=== PATIENT | female | born 1975 | race Hispanic/Latino ===

== ENCOUNTER 2018-11-09 13:06 | Emergency (ER) | payer OTHER ==
[~2018-11-09] VITALS: Ht 167.6 cm; Wt 125.6 kg
--- OUTSIDE RECORDS SUMMARY | 2018-11-09 13:09 | XMS REPORT | Clinical Summary ---
Author Author [facility] [employer] Address Unknown Phone Unavailable Care Team Providers Care Retail Wireless Sales Representative Name Role Phone Asked, No Pcp PCP Unavailable Allergies Comments Active Allergy Reactions Severity Noted Date Naproxen 11/02/2018 Medications End Date Status Medication Sig Dispensed Refills Start Date Active naproxen (NAPROSYN) 500 Take 500 mg 0 MG tablet by mouth 2 (two) times a day as needed for mild pain. 12/02/2018 Active naproxen (NAPROSYN) 500 Take 1 tablet 60 tablet 0 MG tablet (500 mg 9 total) by mouth 2 (two) times a day with meals for 30 days. 11/12/2018 Active acetaminophen-codeine Take 1-2 10 tablet 0 (TYLENOL WITH CODEINE #3) tablets by 9 300-30 mg per tablet mouth every 6 (six) hours as needed for moderate pain for up to 10 days. Active Problems Problem Noted Date Acute blood loss anemia 06/16/2017 DUB (dysfunctional uterine bleeding) 06/16/2017 Menometrorrhagia 06/16/2017 Iron deficiency anemia due to chronic blood loss from heavy uterine 06/16/2017 bleeding Intramural, submucous, and subserous leiomyoma of uterus 06/16/2017 Enlarged uterus 06/16/2017 Encounters Care Team Description Date Type Specialty Marge Couch DO DUB (dysfunctional uterine bleeding) (Primary Dx) 11/02/2018 Emergency Emergency Medicine 11/02/2018 Travel Darryl Bell MD Chest pain, unspecified type (Primary Dx) 04/22/2018 Emergency Emergency Medicine - 04/23/2018 04/22/2018 Travel after 11/08/2017 Social History Date Tobacco Use Types Packs/Day Years Used Never Smoker Smokeless Tobacco: Never Used Alcohol Use Drinks/Week oz/Week Comments No Sex Assigned at Date Recorded Not on file Industry Job Start Date Occupation Not on file Not on file Not on file Travel End Travel History Travel Start No recent travel history available. Last Filed Vital Signs Time Taken Vital Sign Reading 11/02/2018 2:05 PM CDT Blood Pressure 155/79 11/02/2018 2:05 PM CDT Pulse 105 11/02/2018 2:05 PM CDT Temperature 36.6 C (97.9 F) 11/02/2018 2:05 PM CDT Respiratory Rate 16 11/02/2018 2:05 PM CDT Oxygen Saturation 99% - Inhaled Oxygen - Concentration 04/22/2018 4:53 PM MOTOR PATROL OPERATOR Weight 127 kg (280 lb) 11/02/2018 2:43 PM CDT Height 167.6 cm (5' 6") 04/22/2018 4:53 PM MOTOR PATROL OPERATOR Body Mass Index 45.19 Plan of Treatment Health Maintenance Due Date Last Done Comments INFLUENZA VACCINE 11/03/2018 Procedures Comments Procedure Name Priority Date/Time Associated Diagnosis HCG QUALITATIVE, SERUM STAT 11/02/2018 SCREEN 5:33 PM CDT ESTIMATED GFR STAT 11/02/2018 3:17 PM CDT BASIC METABOLIC PANEL STAT 11/02/2018 3:17 PM CDT TYPE AND SCREEN Routine 11/02/2018 3:17 PM CDT HC COMPLETE BLD COUNT STAT 11/02/2018 W/AUTO DIFF 3:15 PM CDT TROPONIN Timed 04/22/2018 10:35 PM MOTOR PATROL OPERATOR ECG ED PRELIMINARY Routine 04/22/2018 INTERPRETATION 7:17 PM MOTOR PATROL OPERATOR TYPE AND SCREEN Routine 04/22/2018 7:05 PM MOTOR PATROL OPERATOR D-DIMER STAT 04/22/2018 7:05 PM MOTOR PATROL OPERATOR ESTIMATED GFR STAT 04/22/2018 7:05 PM MOTOR PATROL OPERATOR B NATRIURETIC PEPTIDE STAT 04/22/2018 7:05 PM MOTOR PATROL OPERATOR TROPONIN STAT 04/22/2018 7:05 PM MOTOR PATROL OPERATOR CREATINE KINASE, TOTAL STAT 04/22/2018 (CPK) 7:05 PM MOTOR PATROL OPERATOR COMPREHENSIVE METABOLIC STAT 04/22/2018 PANEL 7:05 PM MOTOR PATROL OPERATOR HC COMPLETE BLD COUNT STAT 04/22/2018 W/AUTO DIFF 7:05 PM MOTOR PATROL OPERATOR XR CHEST 1 VW PORTABLE STAT 04/22/2018 5:31 PM MOTOR PATROL OPERATOR ECG 12-LEAD STAT 04/22/2018 4:48 PM MOTOR PATROL OPERATOR TRANSFUSE RED BLOOD CELLS STAT 12/08/2017 5:51 PM CDT TRANSFUSE RED BLOOD CELLS STAT 12/08/2017 5:51 PM CDT after 11/08/2017 Results * hCG qualitative, serum screen (11/02/2018 5:33 PM CDT) Pathologist [facility] [place] hCG Negative [facility] qualitative, Comment: [facility] serum The manufacturers stated [place] sensitivity of HcG test for HOSPITAL serum is >/=10 mIU/ml and urine is >/=20mIU/ml. Specimen Blood Performing Organization Address City/[facility]/Zipcode Phone Number [facility] DEPARTMENT OF [address] [place] [address] PATHOLOGY AND GENOMIC MEDICINE [facility] [place] [address] [address] * Estimated GFR (11/02/2018 3:17 PM CDT) Only the most recent of 2 results within the time period is included. [facility] Estimated GFR >=90 mL/min/1.73 m2 [facility] Comment: [facility] CatergoryUnitsSelect Specialty Hospitale [facility] G1 >=90 Normal or high G2 60-89Mildly decreased [id number] Mildly to moderately decreased [id number] Moderately to severely decreased G4 15-29Severely decreased G5 <15Kidney failure The eGFR was calculated using the Chronic Kidney Disease Epidemiology Collaboration (CKD-EPI) equation. Interpretation is based on recommendations of the National Kidney Foundation-Kidney Disease Outcomes Quality Initiative (NKF-KDOQI) published in 2014. Specimen Plasma specimen Performing Organization Address City/State/Zipcode Phone Number [facility] DEPARTMENT OF [address] [place] [address] PATHOLOGY AND GENOMIC MEDICINE [facility] [address] [place] [address] HOSPITAL * Type and screen (11/02/2018 3:17 PM CDT) Only the most recent of 2 results within the time period is included. ABO grouping O [facility] Rh type POS [facility] Antibody screen NEG [facility] (gel) [facility] Specimen Blood Performing Organization Address City/[facility] Phone Number [facility] DEPARTMENT OF [address] [place] [phone] PATHOLOGY AND GENOMIC MEDICINE [address] * Basic metabolic panel (11/02/2018 3:17 PM CDT) Pathologist [facility] [place] Sodium 140 135 - 150 mEq/L [facility] Potassium 4.0 3.5 - 5.0 mEq/L [facility] Chloride 104 98 - 112 mEq/L [facility] CO2 26 24 - 31 mmol/L [facility] Anion gap 10@ANIO 7 - 15 mEq/L [facility] BUN 14 7 - 18 mg/dL [facility] Creatinine 0.80 0.50 - 0.90 mg/dL [facility] Glucose 109 (H) 65 - 100 mg/dL [facility] Calcium 9.0 8.3 - 10.2 mg/dL [facility] Specimen Plasma specimen Performing Organization Address City/State/Zipcode Phone Number [facility] DEPARTMENT [address] [place] [phone] PATHOLOGY AND GENOMIC MEDICINE [address] * CBC with platelet and differential (11/02/2018 3:15 PM CDT) Only the most recent of 2 results within the time period is included. WBC 9.2 4.2 - 11.0 k/uL [facility] RBC 4.31 4.04 - 5.86 m/uL [facility] HGB 10.5 (L) 11.5 - 15.3 g/dL [facility] HCT 36.0 34.0 - 45.0 % [facility] MCV 83.5 80.0 - 98.0 fL [facility] MCH 24.4 (L) 27.0 - 34.0 pg [facility] MCHC 29.2 (L) 31.5 - 36.5 g/dL [facility] RDW - SD 50.9 37.0 - 51.0 fL [facility] MPV 11.5 (H) 7.4 - 10.4 fL [facility] Platelet count 286 150 - 400 k/uL [facility] Nucleated RBC 0.00 /100 WBC [facility] Neutrophils 73.8 (H) 36.0 - 66.0 % [facility] Lymphocytes 16.2 (L) 24.0 - 44.0 % [facility] Monocytes 7.5 (H) 0.0 - 6.0 % [facility] Eosinophils 1.7 0.0 - 6.0 % [facility] Basophils 0.5 0.0 - 1.2 % [facility] Immature 0.3 0.0 - 1.0 % [facility] granulocytes [facility] Specimen Blood Performing Organization Address City/State/Zipcode Phone Number [facility] DEPARTMENT OF [address] [place] [phone] PATHOLOGY AND GENOMIC MEDICINE [facility] [address] [place] [address] HOSPITAL * Troponin (04/22/2018 10:35 PM MOTOR PATROL OPERATOR) Only the most recent of 2 results within the time period is included. Troponin <0.30 0.00 - 0.30 ng/mL [facility] Comment: [facility] RYAN 0.11 - 1.49 [facility] indicate increased risk of acute coronary syndrome. >=1.5 ng/ml Consistent with acute myocardial infarction. The diagnostic value of a single normal or non-diagnostic result is questionable.Serial samples at 2-6 hour intervals are required to rule out acute myocardial injury. Specimen Plasma specimen Performing Organization Address City/State/Zipcode Phone Number [facility] DEPARTMENT OF [address] [place] [address] PATHOLOGY AND GENOMIC MEDICINE [facility] [address] * ECG ED Preliminary Interpretation - Not an Order (04/22/2018 7:17 PM MOTOR PATROL OPERATOR) Narrative Performed At Darryl Bell MD 04/24/2018 12:36 PM ECG ED Preliminary Interpretation - Not an Order Performed by: Darryl Bell MD Authorized by: Darryl Bell MD ECG reviewed by ED Physician in the absence of a email marketing manager: yes Interpretation: Interpretation: normal Rate: ECG rate:80 bpm ECG rate assessment: normal Rhythm: Rhythm: sinus rhythm Ectopy: Ectopy: none QRS: QRS axis:Normal QRS intervals:Normal Conduction: Conduction: normal ST segments: ST segments:Normal T waves: T waves: normal * D-dimer (04/22/2018 7:05 PM MOTOR PATROL OPERATOR) Pathologist [facility] [place] D-dimer 0.29 0.00 - 0.40 ug/mL [facility] Comment: U [facility] SAN Units are ug/ml Fibrinogen [facility]. [facility] When combined with low clinical probability, D-dimer results of less than 0.5 ug/ml FEU have a good negativepredictive value in excluding PE or DVT. For D-dimer results greater than 0.5ug/ml FEU further testing is indicated if PE or DVT is suspectedclinically. Elevated D-dimer results have been reported in DVT, PE, and DIC cases and may indicate the presence of a clot. D-dimer results may be elevated due to old age, , inflammatory diseases, trauma, post-operative states, sepsis, and malignancies. Specimen Blood Performing Organization Address City/State/Zipcode Phone Number [facility] OF [address] [place] [address] PATHOLOGY AND GENOMIC MEDICINE [facility] [address] * B natriuretic peptide (04/22/2018 7:05 PM MOTOR PATROL OPERATOR) Pathologist [facility] [place] BNP 5 0 - 100 pg/mL [facility] Specimen Blood Performing Organization Address City/[facility]/Zipcode Phone Number [place] [phone] [place] [address] PATHOLOGY AND GENOMIC MEDICINE [address] * Creatine kinase, total (CPK) (04/22/2018 7:05 PM MOTOR PATROL OPERATOR) [facility] Creatine kinase 72 26 - 192 U/L [facility] Specimen Plasma specimen Performing Organization Address City/[facility]/[place] [address] PATHOLOGY AND GENOMIC MEDICINE [address] * Comprehensive metabolic panel (04/22/2018 7:05 PM MOTOR PATROL OPERATOR) [facility] Sodium 137 135 - 150 mEq/L [facility] Potassium 3.9 3.5 - 5.0 mEq/L [facility] Chloride 99 98 - 112 mEq/L [facility] CO2 23 (L) 24 - 31 mmol/L [facility] Anion gap 15@ANIO 7 - 15 mEq/L [facility] BUN 15 7 - 18 mg/dL [facility] Creatinine 0.70 0.50 - 0.90 mg/dL [facility] Glucose 86 65 - 100 mg/dL [facility] Calcium 9.6 8.3 - 10.2 mg/dL [facility] Protein 7.3 6.3 - 8.3 g/dL [facility] Albumin 3.7 3.5 - 5.0 g/dL [facility] A/G ratio 1.0 0.7 - 3.8 [facility] Alkaline 94 0 - 104 U/L [facility] phosphatase [facility] AST 26 10 - 35 U/L [facility] ALT 34 5 - 50 U/L [facility] Total bilirubin 0.3 0.2 - 1.2 mg/dL [facility] Specimen Plasma specimen Performing Organization Address City/State/Zipcode Phone Number [facility] DEPARTMENT OF [address] [place] [address] PATHOLOGY AND GENOMIC MEDICINE [facility] [address] [place] [address] [facility] * XR Chest 1 Vw Portable (04/22/2018 5:31 PM MOTOR PATROL OPERATOR) Specimen Narrative Performed At [facility] EXAMINATION:XR CHEST 1 VW PORTABLE CLINICAL HISTORY:chest pain XR CHEST 1 VW PORTABLEimages are submitted COMPARISON:March 2016 FINDINGS: The cardiac silhouette is normal in size. The pulmonary vasculature is within normal limits. The lung zones have no focal area of consolidation. There is no pleural effusion or pneumothorax. IMPRESSION: 1. There is no acute cardiopulmonary disease. [facility]-[id number] Procedure Note Hm Interface, Radiology Results Incoming - 04/22/2018 5:45 PM MOTOR PATROL OPERATOR EXAMINATION: XR CHEST 1 VW PORTABLE CLINICAL HISTORY: chest pain XR CHEST 1 VW PORTABLE images are submitted COMPARISON: March 2016 FINDINGS: The cardiac silhouette is normal in size. The pulmonary vasculature is within normal limits. The lung zones have no focal area of consolidation. There is no pleural effusion or pneumothorax. IMPRESSION: 1. There is no acute cardiopulmonary disease. [facility]-[id number] Performing Organization Address [facility] Phone Number [facility] [address] [place] [address] * ECG 12 lead (04/22/2018 4:48 PM MOTOR PATROL OPERATOR) Ventricular 80 [facility] rate Atrial rate 80 [facility] LA interval 162 [facility] QRSD interval 90 [facility] QT interval 372 [facility] QTC interval 429 [facility] P axis 1 37 [facility] QRS axis 1 4 [facility] T wave axis 56 [facility] EKG impression Normal sinus rhythm-Cannot [facility] rule out Anterior infarct , age undetermined-Abnormal ECG-No previous ECGs available- Specimen Narrative Performed At Performing Organization Address City/[facility]/Zipcode Phone Number [facility] MUSE [address] [place] [address] * Transfuse RBC (12/08/2017 5:51 PM CDT) Only the most recent of 2 results within the time period is included. after 11/08/2017 Insurance Type Payer Benefit Subscriber ID Effective Phone Address Plan / Dates Group Exchange KEYES EXCHANGE KEYES xxxxxxxxxx [id number] [employer] resent E EXCHANGE Advance Directives Patient has advance care planning documents on file. For more information, rupert munoz contact: Sukhi Cevallos [address] [place] [address]
--- OUTSIDE RECORDS SUMMARY | 2018-11-09 13:09 | XMS REPORT ---
Author Author [facility] Address Unknown Phone Unavailable Care Team Providers Care Import Coordinator Name Role Phone Unavailable Unavailable Problems This patient has no known problems. Allergies, Adverse Reactions, Alerts This patient has no known allergies or adverse reactions. Medications This patient has no known medications. Encounters Start Date/Time End Date/Time Encounter Type Admission Type Attending [facility] Facility Care Department Encounter ID 2019-01-10 00:00:00 2019-01-10 00:00:00 Outpatient [facility] [id number] 2018-11-03 06:18:13 2018-11-03 06:18:13 Emergency [facility] [id number] 2018-11-02 20:11:20 2018-11-02 20:11:20 Emergency [facility] [id number]
--- OUTSIDE RECORDS SUMMARY | 2018-11-09 13:09 | XMS REPORT | Clinical Summary ---
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 Active acetaminophen (TYLENOL) Take 650 mg 0 325 mg tablet by mouth every 6 hours as needed for Pain. Active desogestrel-ethinyl Take 1 tablet 84 Each 1 estradiol (VELIVET) by mouth 4 0.1/.125/.15-25 mg-mcg daily. tabletIndications: Irregular menses, Endometriosis, Dysmenorrhea Active ibuprofen (MOTRIN) 800 mg Take 1 tablet 40 tablet 1 tabletIndications: by mouth 4 Irregular menses, every 8 hours Endometriosis, as needed for Dysmenorrhea Pain. Active acetaminophen-codeine Take 1 tablet 12 tablet 0 (TYLENOL/CODEINE #3) by mouth 9 300-30 mg per every 6 hours tabletIndications: as needed for Menorrhagia with up to 12 irregular cycle, Fibroids doses for Pain. Active medroxyPROGESTERone Take 2 60 tablet 0 (PROVERA) 10 mg tablets by 9 tabletIndications: mouth As Menorrhagia with directed Take irregular cycle, Fibroids 2 tablets by mouth 3 times daily for 1 week. Then take 1 tablet once daily.. Active Problems Problem Noted Date Vaginal bleeding 06/16/2016 Chest pain in adult 06/16/2016 SOB (shortness of breath) on exertion 06/16/2016 Polycystic disease, ovaries Endometriosis Encounters Care Team Description Date Type Specialty Kehinde Gerber MD Pandya, Michael, MD Weltge, Arlo F, MD Menorrhagia with irregular cycle (Primary Dx); Vaginal bleeding; Fibroids 11/02/2018 Emergency Emergency Medicine - 11/03/2018 11/02/2018 Travel after 11/08/2017 Family History Medical History Relation Name Comments Family Medical History Other Unknown Relation Name Status Comments Father Alive Mother Alive Other Sister Alive Sister Alive Social History Date Tobacco Use Types Packs/Day Years Used Former Smoker Smokeless Tobacco: Never Used Drinks/Week oz/Week Comments Alcohol Use No Sex Assigned at Date Recorded Not on file Industry Job Start Date Occupation Not on file Not on file Not on file Travel End Travel History Travel Start No recent travel history available. 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 She has Gladis Henson, ResidentIL 01/10/2019 Office Visit Gynecology Health Maintenance Due Date Last Done Comments Cervical Cancer Scrn (3 1998 Yrs) Breast Cancer Scrn 2017 (Yearly) IMM Influenza Seasonal 01/03/2019 Oct to June (>/=19 yrs) Procedures Comments Procedure Name Priority Date/Time Associated Diagnosis CBC STAT 11/03/2018 9:46 AM CDT CBC/DIFF STAT 11/03/2018 9:46 AM CDT U/S PELVIS NON-OB STAT 11/03/2018 Vaginal bleeding 7:33 AM CDT U/S TRANSVAGINAL STAT 11/03/2018 Vaginal bleeding 7:33 AM CDT CBC STAT 11/03/2018 12:25 AM CDT CBC/DIFF STAT 11/03/2018 12:25 AM CDT TYPE & SCREEN STAT 11/02/2018 9:37 PM CDT TYPE AND SCREEN STAT 11/02/2018 9:37 PM CDT BMP POC Routine 11/02/2018 8:59 PM CDT CBC STAT 11/02/2018 8:55 PM CDT CBC/DIFF STAT 11/02/2018 8:55 PM CDT after 11/08/2017 Results * CBC (11/03/2018 9:46 AM CDT) Only the most recent of 3 results within the time period is included. WBC 9.0 4.5 - 11.0 K/uL [facility] RBC 3.57 (L) 4.20 - 5.40 M/uL [facility] Hemoglobin 8.9 (L) 12.0 - 16.0 g/dL [facility] Hematocrit 30.3 (L) 37.0 - 47.0 % [facility] MCV 84.9 82.0 - 92.0 fL [facility] MCH 24.9 (L) 27.0 - 32.0 pg [facility] MCHC 29.4 (L) 32.0 - 36.0 g/dL [facility] RDW 52.0 (H) 36.4 - 46.3 fL [facility] Platelet 277 150 - 400 K/uL [facility] Mean Platelet 11.7 9.4 - 12.4 fL [facility] Volume Percent NRBC 0.0 % [facility] Neutrophil 70.7 (H) 34.0 - 70.0 % [facility] Lymphocyte 19.0 (L) 20.0 - 50.0 % [facility] Monocyte 7.8 5.0 - 12.0 % [facility] Eosinophil 1.6 0.7 - 5.0 % [facility] Basophil 0.6 0.1 - 1.2 % [facility] Pct Immat Gran 0.3 0.0 - 0.5 % [facility] Neutrophil, Abs 6.39 (H) 1.56 - 6.13 K/uL [facility] Lymphocyte, Abs 1.72 1.18 - 3.74 K/uL [facility] Monocyte, Abs 0.70 (H) 0.24 - 0.36 K/uL [facility] Eosinophil, Abs 0.14 0.04 - 0.36 K/uL [facility] Basophil, Abs 0.05 0.01 - 0.08 K/uL [facility] Absol Immat 0.03 0.00 - 0.03 K/uL [facility] Gran Absolute 0.00 K/uL [facility] NRBC-CV Specimen Blood Performing Organization Address City/State/Zipcode Phone Number [facility] [address] [place] [address] * U/S PELVIS NON-OB (11/03/2018 7:33 AM CDT) Specimen Impressions Performed At IMPRESSION: SMS Multiple uterine fibroids, as described above. Otherwise, normal pelvic ultrasound. This [facility] radiology report is a preliminary resident dictation until finalized by an attending.Changes to this preliminary report may occur in an additional preliminary or finalized version. Dictated By: Kimber Vides MD, 11/03/2018 7:30 AM I have reviewed the study and agree with the findings in this report. Signed By: Vega Juarez MD, 11/03/2018 7:34 AM Narrative Performed At EXAM: US PELVIS TRANSABDOMINAL [facility] EXAM: US PELVIS TRANSVAGINAL DATE: 11/03/2018 6:18 AM INDICATION: Abnormal uterine bleeding. Vaginal bleeding. ADDITIONAL INFORMATION: 43y.o.? with PMH Obesity CHTN, endometriosis, prediabetic,??presents to the with complaints of vaginal bleeding She states she started having lower?cramping for the past two days, she then started spotting and then one day prior to presentation she started bleeding and passing large clots?about tennis ball sized. LMP 08/17/2018. COMPARISON: Pelvic ultrasound from 06/17/2007. TECHNIQUE:Multiplanar grayscale and color Doppler ultrasound of the pelvis were obtained transabdominally through a distended urinary bladder and transvaginally postvoid. FINDINGS: Uterus/Myometrium: Size: 10.3 x 5.5 x 7.1 cm Orientation: Anteverted. Echogenicity: Normal. Masses: Subserosal fibroid is identified in the posterior uterine body, measuring 1.6 x 0.9 x 1.4 cm. Another such as a fibroid is identified in the anterior uterine body, measuring 0.6 x 0.4 x 0.6 cm. Intramural fibroid is identified in the left uterine body, measuring 0.9 x 1.0 x 0.7 cm. Cervix: Nabothian cysts. Otherwise normal cervix. Estimated length 4.3 cm. Endometrium: Minimal color Doppler signal. Thickness: 1.1 cm Cysts/Masses: None. Right ovary: Size: 4.1 x 2.4 x 3.0 cm Cysts/Masses: None. Left ovary: Size: 3.1 x 2.0 x 2.2 cm Cysts/Masses: None. Adnexa: Normal. Free fluid: None. Other: None. Procedure Note Interface, Rad/Mammog In - 11/03/2018 7:40 AM CDT EXAM: US PELVIS TRANSABDOMINAL EXAM: US PELVIS TRANSVAGINAL DATE: 11/03/2018 6:18 AM INDICATION: Abnormal uterine bleeding. Vaginal bleeding. ADDITIONAL INFORMATION: 43y.o.? with PMH Obesity CHTN, endometriosis, prediabetic,??presents to the with complaints of vaginal bleeding She states she started having lower?cramping for the past two days, she then started spotting and then one day prior to presentation she started bleeding and passing large clots?about tennis ball sized. LMP 08/17/2018. COMPARISON: Pelvic ultrasound from 06/17/2007. TECHNIQUE: Multiplanar grayscale and color Doppler ultrasound of the pelvis were obtained transabdominally through a distended urinary bladder and transvaginally postvoid. FINDINGS: Uterus/Myometrium: Size: 10.3 x 5.5 x 7.1 cm Orientation: Anteverted. Echogenicity: Normal. Masses: Subserosal fibroid is identified in the posterior uterine body, measuring 1.6 x 0.9 x 1.4 cm. Another such as a fibroid is identified in the anterior uterine body, measuring 0.6 x 0.4 x 0.6 cm. Intramural fibroid is identified in the left uterine body, measuring 0.9 x 1.0 x 0.7 cm. Cervix: Nabothian cysts. Otherwise normal cervix. Estimated length 4.3 cm. Endometrium: Minimal color Doppler signal. Thickness: 1.1 cm Cysts/Masses: None. Right ovary: Size: 4.1 x 2.4 x 3.0 cm Cysts/Masses: None. Left ovary: Size: 3.1 x 2.0 x 2.2 cm Cysts/Masses: None. Adnexa: Normal. Free fluid: None. Other: None. IMPRESSION IMPRESSION: Multiple uterine fibroids, as described above. Otherwise, normal pelvic ultrasound. This [facility] radiology report is a preliminary resident dictation until finalized by an attending. Changes to this preliminary report may occur in an additional preliminary or finalized version. Dictated By: Kimber Vides MD, 11/03/2018 7:30 AM I have reviewed the study and agree with the findings in this report. Signed By: Vega Juarez MD, 11/03/2018 7:34 AM Performing Organization Address City/State/Zipcode Phone Number [facility] * U/S TRANSVAGINAL (11/03/2018 7:33 AM CDT) Specimen Impressions Performed At IMPRESSION: [facility] Multiple uterine fibroids, as described above. Otherwise, normal pelvic ultrasound. This [facility] radiology report is a preliminary resident dictation until finalized by an attending.Changes to this preliminary report may occur in an additional preliminary or finalized version. Dictated By: Kimber Vides MD, 11/03/2018 7:30 AM I have reviewed the study and agree with the findings in this report. Signed By: Vega Juarez MD, 11/03/2018 7:34 AM Narrative Performed At EXAM: US PELVIS TRANSABDOMINAL [facility] EXAM: US PELVIS TRANSVAGINAL DATE: 11/03/2018 6:18 AM INDICATION: Abnormal uterine bleeding. Vaginal bleeding. ADDITIONAL INFORMATION: 43y.o.? with PMH Obesity CHTN, endometriosis, prediabetic,??presents to the with complaints of vaginal bleeding She states she started having lower?cramping for the past two days, she then started spotting and then one day prior to presentation she started bleeding and passing large clots?about tennis ball sized. LMP 08/17/2018. COMPARISON: Pelvic ultrasound from 06/17/2007. TECHNIQUE:Multiplanar grayscale and color Doppler ultrasound of the pelvis were obtained transabdominally through a distended urinary bladder and transvaginally postvoid. FINDINGS: Uterus/Myometrium: Size: 10.3 x 5.5 x 7.1 cm Orientation: Anteverted. Echogenicity: Normal. Masses: Subserosal fibroid is identified in the posterior uterine body, measuring 1.6 x 0.9 x 1.4 cm. Another such as a fibroid is identified in the anterior uterine body, measuring 0.6 x 0.4 x 0.6 cm. Intramural fibroid is identified in the left uterine body, measuring 0.9 x 1.0 x 0.7 cm. Cervix: Nabothian cysts. Otherwise normal cervix. Estimated length 4.3 cm. Endometrium: Minimal color Doppler signal. Thickness: 1.1 cm Cysts/Masses: None. Right ovary: Size: 4.1 x 2.4 x 3.0 cm Cysts/Masses: None. Left ovary: Size: 3.1 x 2.0 x 2.2 cm Cysts/Masses: None. Adnexa: Normal. Free fluid: None. Other: None. Procedure Note Interface, Rad/Mammog In - 11/03/2018 7:40 AM CDT EXAM: US PELVIS TRANSABDOMINAL EXAM: US PELVIS TRANSVAGINAL DATE: 11/03/2018 6:18 AM INDICATION: Abnormal uterine bleeding. Vaginal bleeding. ADDITIONAL INFORMATION: 43y.o.? with PMH Obesity CHTN, endometriosis, prediabetic,??presents to the with complaints of vaginal bleeding She states she started having lower?cramping for the past two days, she then started spotting and then one day prior to presentation she started bleeding and passing large clots?about tennis ball sized. LMP 08/17/2018. COMPARISON: Pelvic ultrasound from 06/17/2007. TECHNIQUE: Multiplanar grayscale and color Doppler ultrasound of the pelvis were obtained transabdominally through a distended urinary bladder and transvaginally postvoid. FINDINGS: Uterus/Myometrium: Size: 10.3 x 5.5 x 7.1 cm Orientation: Anteverted. Echogenicity: Normal. Masses: Subserosal fibroid is identified in the posterior uterine body, measuring 1.6 x 0.9 x 1.4 cm. Another such as a fibroid is identified in the anterior uterine body, measuring 0.6 x 0.4 x 0.6 cm. Intramural fibroid is identified in the left uterine body, measuring 0.9 x 1.0 x 0.7 cm. Cervix: Nabothian cysts. Otherwise normal cervix. Estimated length 4.3 cm. Endometrium: Minimal color Doppler signal. Thickness: 1.1 cm Cysts/Masses: None. Right ovary: Size: 4.1 x 2.4 x 3.0 cm Cysts/Masses: None. Left ovary: Size: 3.1 x 2.0 x 2.2 cm Cysts/Masses: None. Adnexa: Normal. Free fluid: None. Other: None. IMPRESSION IMPRESSION: Multiple uterine fibroids, as described above. Otherwise, normal pelvic ultrasound. This [facility] radiology report is a preliminary resident dictation until finalized by an attending. Changes to this preliminary report may occur in an additional preliminary or finalized version. Dictated By: Kimber Vides MD, 11/03/2018 7:30 AM I have reviewed the study and agree with the findings in this report. Signed By: Vega Juarez MD, 11/03/2018 7:34 AM Performing Organization Address City/State/Zipcode Phone Number SMS * TYPE & SCREEN (11/02/2018 9:37 PM CDT) Specimen 11/05/2018 23:59 [facility] Expiration ABORH O POS [facility] Antibody Screen NEG [facility] Specimen Blood Performing Organization Address City/[facility]/Zipcode Phone Number [facility] [address] [place] [address] * BMP POC (11/02/2018 8:59 PM CDT) Sodium POC 140 136 - 145 mmol/L [facility] Potassium POC 3.6 3.5 - 5.1 mmol/L [facility] Chloride POC 102 98 - 107 mmol/L [facility] TCO2 POC 27 21 - 32 mmol/L [facility] Urea Nitrogen 16 7 - 18 mg/dL [facility] POC Creatinine POC 0.6 0.6 - 1.3 mg/dL [facility] Glucose POC 107 (H) 74 - 106 mg/dL [facility] Ionized Calcium 1.11 (L) 1.15 - 1.29 mmol/L [facility] POC GFR, Estimated >90 >=90 mL/min/1.73 m2 [facility] Specimen Blood, venous Performing Organization Address City/State/Zipcode Phone Number [facility] [address] [place] [address] after 11/08/2017 Insurance Type Payer Benefit Subscriber ID Effective Phone Address Plan / Dates Group UpToPLACE Arideas xxxxxxxxxx 2016-P [phone] [address] [facility] [address] [place] [address] [facility] SELF-PAY SELF-PAY xxxxxxxxx 2016- [phone] [address] [place] [address]
--- OUTSIDE RECORDS SUMMARY | 2018-11-09 13:10 | XMS REPORT ---
Author Author Admin, [facility] Address [address] [place] [address] Phone Allergies, Adverse Reactions, Alerts Allergy Name Reaction Description Start Date Severity Status Provider NAPROXEN Fast Heart Rate and Chest Pain Critical Active Jose G Trinidad MD Conditions or Problems Problem Name Problem Code Onset Date Status Entry Date Provider Comment Standard Description Annotate Peripheral edema 782.3 Active Pipo Cook PRECISION FILER HAND-C Edema Headaches 784.0 Active Jose G Trinidad MD Headache Ingrowing toenail 703.0 Active Jose G Trinidad MD Ingrowing nail Insomnia 780.52 Active Jose G Trinidad MD Insomnia, unspecified Onychomycosis 110.1 Active Jose G Trinidad MD Dermatophytosis of nail 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 Leiomyoma of uterus, unspecified Abdominal pain 789.00 Active Jose G Trinidad MD Abdominal pain, unspecified site RLQ and LLQ Vaginal discharge 623.5 Active Jose G Trinidad MD Leukorrhea, not specified as infective Anemia 285.9 Active Kylee Moralez MD Anemia, unspecified Anxiety depression 300.4 Active Kylee Moralez MD Dysthymic disorder BMI 40.0-44.9 Active Kylee Moralez MD Body Mass Index 40.0-44.9, adult Endometriosis 617.9 Active Kylee Moralez MD Endometriosis, site unspecified Headache 784.0 Active Kylee Moralez MD Headache Menometrorrhagia 626.2 Active Kylee Moralez MD Excessive or frequent menstruation MORBID OBESITY Active Kylee Moralez MD Morbid obesity Polycystic ovarian disease 256.4 Active Kylee Moralez MD Polycystic ovaries Well adult exam V70.0 Active Kylee Moralez MD Routine general medical examination at a health care facility Medication List Medication Instructions Start Date Stop Date Generic Name NDC Status Provider Patient Instruction FERROUS SULFATE 325 (65 FE) MG ORAL TABLET DELAYED RELEASE 1 by mouth 2 times a daily FERROUS SULFATE 41691844586 Active Pipo DCP-C Active AMITRIPTYLINE HCL 10 MG ORAL TABLET 1 by mouth nightly at bedtime AMITRIPTYLINE HCL 06176343665 Active Jose G Trinidad MD Active CORTISPORIN 3.5-03377-8 OTIC SOLUTION 4 drops in ear three times daily for 7 days [id number] 45598780094 Active Kayta ANGELES Active TRAMADOL HCL 50 MG ORAL TABLET 1-2 tablets by mouth 4 times a day as needed for pain TRAMADOL HCL 79771220821 Active Katya ANGELES Active METFORMIN HCL 500 MG ORAL TABLET 1 by mouth twice a day METFORMIN HCL 68434361212 Active Leon Whatley MD R3 Active MULTIVITAMINS ORAL CAPSULE 1 by mouth every day MULTIPLE VITAMIN 69174679402 Active Leon Whatley MD R3 Active NAPROXEN 500 MG ORAL TABLET 1 by mouth twice a day as needed for pain and inflammation NAPROXEN 18238243386 Active Jose G Trinidad MD Active SPRINTEC 28 0.25-35 MG-MCG ORAL TABLET take 1 pill daily NORGESTIMATE- ETH ESTRADIOL 64971766577 Active Leon Whatley MD R3 Active FLUCONAZOLE 150 MG ORAL TABLET take 1 tablet FLUCONAZOLE 62269840260 Active Leon Whatley MD R3 Active FERROUS SULFATE 325 (65 Fe) MG ORAL TABLET DELAYED RELEASE 1 by mouth 2 times a daily FERROUS SULFATE 03457346069 Active Jose G Trinidad MD Active IMITREX 25 MG ORAL TABLET may repeat in 2 hours maximum 4 tabs per day IMITREX 25 MG ORAL TABLET 078262 SUMATRIPTAN SUCCINATE Inactive TERBINAFINE HCL 250 MG ORAL TABLET one tablet By Mouth daily TERBINAFINE HCL 250 MG ORAL TABLET 095876 TERBINAFINE HCL Inactive AMOXICILLIN 500 MG ORAL CAPSULE 1 by mouth 2 times a day AMOXICILLIN 500 MG ORAL CAPSULE 902978 AMOXICILLIN Inactive IMITREX 25 MG ORAL TABLET may repeat in 2 hours maximum 4 tabs per day SUMATRIPTAN SUCCINATE 88162178277 No Longer Active Jose G Trinidad MD Active TERBINAFINE HCL 250 MG ORAL TABLET one tablet By Mouth daily TERBINAFINE HCL 35921498402 No Longer Active Jose G Trinidad MD Active AMOXICILLIN 500 MG ORAL CAPSULE 1 by mouth 2 times a day AMOXICILLIN 99186966078 No Longer Active Leon Whatley MD R3 Active Vital Signs Date Name Value Unit Range Description blood pressure, diastolic 82 mm[Hg] BP vann blood pressure, systolic 131 mm[Hg] BP sys height E&M 65 [in_us] Bdy height pulse rate E&M 71 /min Heart rate respiratory rate E&M 17 /min Resp rate temperature E&M 98.8 [degF] Body temperature weight E&M 277.60 [lb_av] Weight Measured blood pressure, diastolic 84 mm[Hg] BP vann blood pressure, systolic 129 mm[Hg] BP sys height E&M 65 [in_us] Bdy height pulse rate E&M 70 /min Heart rate respiratory rate E&M 17 /min Resp rate temperature E&M 97.6 [degF] Body temperature weight E&M 277.20 [lb_av] Weight Measured Diagnostic Results Date Name Value Unit Range Description Lab Report: CBC With Differential/Platelet - Hematology hematocrit, blood 34.6 % 34.0-46.6 Lab Report: CBC With Differential/Platelet, Comp. Metabolic Panel (14) - Chemistry sodium, serum 143 mmol/L 134-144 Lab Report: CBC With Differential/Platelet - Hematology neutrophils as percent of blood leukocytes 64 % Not Estab. basophils as percent of blood leukocytes 0 % Not Estab. Internal Correspondence: Pre-Visit Planning - Other List of providers caring for patient Telly Aldridge Lab Report: CBC With Differential/Platelet, Comp. Metabolic Panel (14) - Chemistry carbon dioxide, venous blood 22 mmol/L 18-29 chloride, serum 105 mmol/L 96-106 calcium, serum 9.2 mg/dL 8.7-10.2 urea nitrogen, blood 13 mg/dL 6-20 alanine aminotransferase (SGPT), serum 18 U/L 0-32 Lab Report: CBC With Differential/Platelet - Hematology mean corpuscular hemoglobin, RBC 25.4 pg 26.6-33.0 mean corpuscular hemoglobin concentration, RBC 31.2 G/DL % 31.5-35.7 Lab Report: CBC With Differential/Platelet, Comp. Metabolic Panel (14) - Chemistry protein, total, serum 7.2 g/dL 6.0-8.5 Lab Report: CBC With Differential/Platelet - Hematology erythrocyte (RBC) count 4.26 X10E6/UL 10*6/mm3 3.77-5.28 Lab Report: CBC With Differential/Platelet, Comp. Metabolic Panel (14) - Chemistry alkaline phosphatase, serum 76 U/L 39-117 Office Visit: [facility] - Hematology hemoglobin, blood 8.6 g/dL Lab Report: CBC With Differential/Platelet - Chemistry Absolute Neutrophils 4.3 X10E3/UL 10*3/uL 1.4-7.0 Lab Report: CBC With Differential/Platelet - Hematology lymphocytes as percent of blood leukocytes 25 % Not Estab. Lab Report: CBC With Differential/Platelet, Comp. Metabolic Panel (14) - Chemistry urea nitrogen/creatinine ratio, serum 18 9-23 Lab Report: CBC With Differential/Platelet - Hematology mean corpuscular volume, RBC 81 fL 79-97 Internal Correspondence: Pre-Visit Planning - CC care team foreman #1, name Radha Lauren Lab Report: CBC With Differential/Platelet, Comp. Metabolic Panel (14) - Genetics/fertility eGFR if 120 mL/min/1.73m2 >59 Lab Report: CBC With Differential/Platelet - Hematology basophil count, absolute 0.0 x10E3/uL 0.0-0.2 monocytes as percent of blood leukocytes 8 % Not Estab. [facility] - Coagulation international normalized ratio (INR) 1.0 Lab Report: CBC With Differential/Platelet, Comp. Metabolic Panel (14) - Chemistry globulin, serum 3.1 1.5-4.5 creatinine, serum 0.73 mg/dL 0.57-1.00 Estimated Glomerular Filtration Rate (calc) 104 mL/min/1.73m2 >59 albumin/globulin ratio, serum 1.3 1.2-2.2 bilirubin, serum, total 0.4 mg/dL 0.0-1.2 Lab Report: CBC With Differential/Platelet - Hematology Eosinophil Absolute Count 0.2 X10E3/UL 10*3/uL 0.0-0.4 eosinophils as percent of blood leukocytes 3 % Not Estab. Lab Report: CBC With Differential/Platelet, Comp. Metabolic Panel (14) - Chemistry blood glucose, random 81 mg/dL 65-99 aspartate aminotransferase (SGOT), serum 15 U/L 0-40 Lab Report: CBC With Differential/Platelet - Hematology red blood cell distribution width 16.5 % 12.3-15.4 leukocyte count, blood 6.8 X10E3/UL 10*3/mm3 3.4-10.8 monocyte count, blood, automated 0.5 X10E3/UL 10*3/uL 0.1-0.9 Lab Report: CBC With Differential/Platelet, Comp. Metabolic Panel (14) - Chemistry potassium, serum 4.4 mmol/L 3.5-5.2 Lab Report: CBC With Differential/Platelet - Chemistry immature granulocytes, percentage of total cells, blood 0 % Not Estab. Lab Report: CBC With Differential/Platelet - Hematology platelet count 258 X10E3/UL 10*3/mm3 150-450 Lab Report: CBC With Differential/Platelet, Comp. Metabolic Panel (14) - Chemistry albumin, serum 4.1 g/dL 3.5-5.5 Lab Report: CBC With Differential/Platelet - Hematology lymphocyte count, blood, automated 1.7 X10E3/UL 10*3/mm3 0.7-3.1 Encounters Date Encounter Provider Code Facility 15:06:01 CDT Ofc Vst, Est Level III Pipo Cook PRECISION FILER HAND-C CPT-47292 [facility] 09:35:22 CDT Est Patient Detailed - 51201 Jose G Trinidad MD CPT-36155 [facility] 10:21:21 CDT Ofc Vst, Est Level IV Jose G Trinidad MD CPT-07520 [facility] 12:10:20 CDT Est Patient Exp Problem - 01330 Sd Christie MD CPT-29556 [place] [employer] 18:39:52 PERMASTONE APPLICATOR Est Patient Exp Problem - 71822 Leon Whatley MD R3 CPT-89588 [facility] 14:05:02 PERMASTONE APPLICATOR Est Patient Exp Problem - 27130 Katya Prince PRECISION FILER HAND CPT-82785 [facility] 19:16:47 PERMASTONE APPLICATOR Est Patient Exp Problem - 91201 Christi Senior D.O. CPT-39251 [facility] 15:17:38 PERMASTONE APPLICATOR Est Patient Exp Problem - 25560 Leon Whatley MD R3 CPT-51623 [facility] 00:23:54 CDT New Patient Detailed - 66493 Kylee Moralez MD CPT-09938 [facility] Procedures Code Procedure Name Date Entry Date Standard Description CPT-59726 Prothrombin Time (INR) - In House 14:56:04 CDT CPT-76201 BLOOD COUNT HEMOGLOBIN 14:56:03 CDT CPT-62679 Ear Irrigation 09:10:22 PERMASTONE APPLICATOR CPT-15109 Diagnostic evaluation (no medical) - 55325 16:24:13 CDT
[2018-11-09] MEDS ORDERED: ONDANSETRON HCL INJ 2MG/ML 2ML 2 MG/ML VIAL IV STA (13:12)
[2018-11-09] MEDS ORDERED: SODIUM CHLORIDE 0.9% 1000ML 1,000 ML IV STA (13:12)
[2018-11-09 13:46] LABS: BASOPHILS # (AUTO) 0.1 (0.0-0.1); BASOPHILS % 0.6 % (0.0-1.0); EOSINOPHILS # (AUTO) 0.1 (0.0-0.4); EOSINOPHILS % 1.5 % (0.0-6.0); HEMATOCRIT 28.1 % (34.2-44.1); HEMOGLOBIN 8.5 g/dL (12.0-16.0); LYMPHOCYTES # (AUTO) 1.6 (1.0-3.2); LYMPHOCYTES % 19.3 % (18.0-39.1); MEAN CORPUSCULAR HEMOGLOBIN 24.7 pg (28-32); MEAN CORPUSCULAR HGB CONC 30.2 g/dL (31-35); MEAN CORPUSCULAR VOLUME 81.7 fL (81-99); MONOCYTES # (AUTO) 0.7 (0.2-0.8); MONOCYTES % 8.1 % (4.4-11.3); NEUTROPHILS # (AUTO) 5.7 (2.1-6.9); NEUTROPHILS % 69.9 % (38.7-80.0); PLATELET COUNT 331 x10e3/uL (140-360); RED BLOOD COUNT 3.44 x10e6/uL (3.6-5.1); RED CELL DISTRIBUTION WIDTH 17.3 % (11.7-14.4)
[2018-11-09 13:54] LABS: BILIRUBIN,URINE NEGATIVE (NEGATIVE); CLARITY,URINE SL CLOUDY (CLEAR); COLOR,URINE YELLOW (YELLOW); KETONES,URINE NEGATIVE (NEGATIVE); LEUKOCYTE ESTERASE ,URINE SMALL (NEGATIVE); NITRITE,URINE NEGATIVE (NEGATIVE); PREGNANCY TEST, URINE NEGATIVE (NEGATIVE); PROTEIN,URINE DIPSTICK NEGATIVE (NEGATIVE); URINE UROBILINOGEN 0.2 mg/dL (0.2 - 1)
[2018-11-09 14:00] LABS: INR 1.03
[2018-11-09 14:01] LABS: PARTIAL THROMBOPLASTIN TIME 31.3 seconds (23.8-35.5)
[2018-11-09 14:08] LABS: ALANINE AMINOTRANSFERASE 28 IU/L (0-55); ALBUMIN 3.6 g/dL (3.5-5.0); ALKALINE PHOSPHATASE 73 IU/L (40-150); ANION GAP 14.7 mmol/L (8-16); BLOOD UREA NITROGEN 10 mg/dL (7-26); BUN/CREATININE RATIO 14 (6-25); CALCIUM 8.9 mg/dL (8.4-10.2); CARBON DIOXIDE 22 mmol/L (22-29); CHLORIDE 105 mmol/L (98-107); CREATINE KINASE 116 IU/L (29-168); CREATININE, SERUM 0.72 mg/dL (0.57-1.11); EST GLOMERULAR FILTRATION RATE > 60 ML/MIN (60-); GLUCOSE 90 mg/dL (74-118); POTASSIUM 3.7 mmol/L (3.5-5.1); SODIUM 138 mmol/L (136-145)
[2018-11-09 14:12] LABS: BACTERIA,URINE FEW /HPF; EPITHELIAL CELLS,URINE FEW /LPF; WBC,URINE (MAN) 0-5 /HPF (0-5)
--- NOTE | 2018-11-09 14:34 | Diagnostic Imaging Report ---
EXAMINATION: CHEST SINGLE (PORTABLE) INDICATION: Shortness of breath COMPARISON: None FINDINGS: LINES/TUBES:EKG leads overlie the chest. LUNGS:The lungs are moderately inflated. No focal consolidation or pulmonary edema. PLEURA:No pleural effusion or pneumothorax. MEDIASTINUM:The heart is enlarged. BONES/SOFT TISSUES:No acute osseous injury. ABDOMEN:No free air under the diaphragm. IMPRESSION: No focal pneumonia or pulmonary edema. Cardiomegaly. Signed by: Felix Loza MD on 11/09/2018 2:30 PM
[2018-11-09 15:00] VITALS: BP 124/72
== END 2018-11-09 15:41 | disposition home or self-care (01) ==
LOC: ER 13:06
DX: R07.89 Other chest pain (principal); N92.1 Excessive and frequent menstruation with irregular cycle; D50.0 Iron deficiency anemia secondary to blood loss (chronic); E28.2 Polycystic ovarian syndrome; D25.9 Leiomyoma of uterus, unspecified
CPT/HCPCS: 36415; 71045; 80053; 81001; 81025; 82550; 82553; 83880; 84484; 85025; 85379; 85610; 85730; 86850; 86900; 93005; 99284; J2405; J7030